=== PATIENT | female | born 1970 | race Caucasian/White ===

== ENCOUNTER 2017-01-31 16:39 | Inpatient (IN) | payer OTHER ==
[~2017-01-31] VITALS: Ht 162.6 cm; Wt 64.0 kg
--- NOTE | 2017-01-31 16:40 | NUR ---
PT IS IN ROOM #2B. DR AMARAL EVALUATED THE PT.
[2017-01-31] MEDS ORDERED: ALBU0.63 IH (16:54)
[2017-01-31] MEDS ORDERED: IV NS 1000 ML 1,000 ML IV ONE ×2 (17:15→18:30)
[2017-01-31] MEDS ORDERED: PANTOPRAZOLE SODIUM IV 40 MG in IV DEXTROSE 5% 100 ML IV ONE (17:20)
[2017-01-31] MEDS ORDERED: ONDANSETRON IV *ER 4 MG/2 ML VIAL IV ONE (17:30)
[2017-01-31] MEDS ORDERED: LORAZEPAM 2 MG/1 ML VIAL IV ONE (17:30)
[2017-01-31] MEDS ORDERED: MORPHINE SULFATE 2 MG/1 ML DISP.SYRIN IV ONE (17:30)
[2017-01-31 17:37] LABS: BASOPHILS % (AUTO) 0.6 % (0.0-2.0); EOSINOPHILS # (AUTO) 0.1 K/uL (0.0-0.7); EOSINOPHILS % (AUTO) 0.7 % (0.0-7.0); HEMATOCRIT 43.2 % (37-47); HEMOGLOBIN 14.1 G/DL (12.0-16.0); LYMPHOCYTES # (AUTO) 1.2 K/UL (0.8-4.8); LYMPHOCYTES % (AUTO) 16.7 % (20.5-51.5); MEAN CORPUSCULAR HEMOGLOBIN 31.2 UUG (27.0-31.0); MEAN CORPUSCULAR HGB CONC 33 g/dL (32.0-37.0); MEAN CORPUSCULAR VOLUME 95.6 FL (81.0-99.0); MONOCYTES # (AUTO) 0.3 K/UL (0.1-1.30); MONOCYTES % (AUTO) 4.7 % (0.0-11.0); NEUTROPHILS # (AUTO) 5.8 K/UL (1.8-8.9); NEUTROPHILS % (AUTO) 77.3 % (38.5-71.5); PLATELET COUNT (AUTO) 328 K/UL (150-450); RED BLOOD CELL COUNT(AUTO) 4.52 MIL/UL (4.2-5.4); WHITE BLOOD COUNT (AUTO) 7.4 K/UL (4.0-11.2)
[2017-01-31] MEDS ORDERED: ONDANSETRON 4 MG/2 ML VIAL ONE (17:43)
[2017-01-31] MEDS ORDERED: PANTOPRAZOLE SODIUM 40 MG VIAL ONE (17:43)
[2017-01-31] MEDS ORDERED: MORPHINE SULFATE 4 MG/1 ML DISP.SYRIN ONE (17:44)
[2017-01-31] MEDS ORDERED: LORAZEPAM 2 MG/1 ML VIAL ONE (17:45)
[2017-01-31] MEDS ORDERED: METOCLOPRAMIDE HCL 10 MG/2 ML VIAL IV ONE (17:51)
[2017-01-31 18:00] LABS: ETHANOL 253 MG/DL (0-0)
[2017-01-31 18:02] LABS: CARBON DIOXIDE 23 mmol/L (21-32); CHLORIDE 106 mmol/L (98-107); CREATININE 0.7 mg/dL (0.6-1.3); GLUCOSE 98 mg/dL (74-106); POTASSIUM 3.6 mmol/L (3.5-5.1); UREA NITROGEN, BLOOD 10 mg/dL (7-18)
[2017-01-31 18:04] LABS: AMYLASE 47 U/L (25-115); CREATINE KINASE, TOTAL 144 U/L (26-192); LIPASE 346 U/L (73-393)
[2017-01-31 18:08] LABS: ALANINE AMINOTRANSFERASE 18 U/L (14-59); ALKALINE PHOSPHATASE 132 U/L (50-136); ASPARTATE AMINOTRANSFERASE 20 U/L (15-37); BILIRUBIN,DIRECT 0.1 mg/dL (0.0-0.2); BILIRUBIN,TOTAL 0.4 mg/dL (0.2-1.0); TOTAL PROTEIN, SERUM 8.2 g/dL (6.4-8.2)
[2017-01-31 18:09] LABS: ACETAMINOPHEN < 2.0 ug/mL (10-30)
[2017-01-31] MEDS ORDERED: METOCLOPRAMIDE HCL 10 MG/2 ML VIAL ONE (18:13)
[2017-01-31 18:19] LABS: *AMPHETAMINE, URINE NEGATIVE (NEGATIVE); *BARBITURATE, URINE NEGATIVE (NEGATIVE); *CANNABINOID, URINE NEGATIVE (NEGATIVE); *COCCAINE, URINE NEGATIVE (NEGATIVE); *OPIATE, URINE POSITIVE (NEGATIVE); *PHENCYCLIDINE SCREEN,URINE NEGATIVE (NEGATIVE)
[2017-01-31 18:21] LABS: *BILIRUBIN,URIN NEGATIVE (NEGATIVE); *BLOOD, URINE Trace-lysed (NEGATIVE); *CLARITY,URINE CLEAR (CLEAR); *COLOR,URINE YELLOW (YELLOW); *KETONES,URINE NEGATIVE (NEGATIVE); *PROTEIN,URINE NEGATIVE (NEGATIVE); *UROBILINOGEN,URINE 0.2 E.U./dl (NORMAL); LEUKOCYTE ESTERASE ,URINE NEGATIVE (NEGATIVE); NITRITE, URINE NEGATIVE (NEGATIVE); UGLUCOSE NEGATIVE (NEGATIVE)
[2017-01-31 18:23] LABS: BACTERIA,URINE NONE SEEN /HPF (NONE SEEN); RBC,URINE 0-3 /HPF (0-3); SQUAMOUS EPITHELIAL CELL,UR FEW /HPF (NONE SEEN); WBC,URINE 0-3 /HPF (0-3)
[2017-01-31] MEDS ORDERED: HYDROMORPHONE 1 MG/1 ML DISP.SYRIN IV ONE ×3 (18:30→22:25)
[2017-01-31] MEDS ORDERED: HYDROMORPHONE 1 MG/1 ML DISP.SYRIN ONE ×2 (18:36→23:06)
[2017-01-31] MEDS ORDERED: KETAMINE HCL 500 MG/10 ML INJ IV ONE ×2 (19:00→21:45)
--- NOTE | 2017-01-31 19:10 | NUR ---
PT WAS MEDICATED ACCORDING TO ER MD ORDERS. PT TOLERATED TO PROCEDURES AND MEDICATION WITHOUT COMPLICATIONS. FAMILY AT THE BEDSIDE. REPORT GIVEN TO BUSINESS ANALYTICS INTERN BARRIE TAIPA.
[2017-01-31] MEDS ORDERED: KETAMINE HCL 500 MG/10 ML INJ ONE ×2 (19:19→22:24)
--- NOTE | 2017-01-31 19:30 | NUR ---
2nd call placed to [facility], Dr. Still speaking with MARY.
--- NOTE | 2017-01-31 20:16 | NUR ---
Patient attempting to elope, ERMD notified. Per ERMD, patient is not to leave as she is not able to make medical decisions at this time. 1:1 sitter ordered by ERMFortunato, Nursing Studio Designer notified, no 1:1 sitter available at this time.
--- NOTE | 2017-01-31 20:20 | NUR ---
Security at bedside, no 1:1 sitter available.
--- NOTE | 2017-01-31 20:24 | NUR ---
Security will not remain with patient due to patient not officially being placed on hold. ERMD notified, Interface Engineer notified.
[2017-01-31] MEDS ORDERED: HYDROMORPHONE 2 MG/1 ML DISP.SYRIN ONE (20:58)
--- NOTE | 2017-01-31 22:27 | NUR ---
Pt. admitted to CCU , under care of Dr. LYNN Belongs List completed.
[2017-01-31 22:45] VITALS: BP 135/91
[2017-01-31 23:00] VITALS: BP 120/93
[2017-01-31] MEDS ORDERED: POTASSIUM CHLORIDE 20 MEQ in IV 1/2NS 1000 ML 1,000 ML IV PRN (23:30)
[2017-01-31] MEDS ORDERED: ONDANSETRON 4 MG/2 ML VIAL IV PRN (23:30)
[2017-01-31] MEDS ORDERED: MAG HYDROX/AL HYDROX/SIMETH 30 ML LIQUID UDC PO PRN (23:30)
[2017-01-31] MEDS ORDERED: ALBUTEROL SULFATE 2.5 MG/3 ML NEBU NEB PRN (23:30)
[2017-01-31] MEDS ORDERED: ACETAMINOPHEN 325 MG TABLET PO PRN (23:30)
[2017-01-31] MEDS ORDERED: HYDROMORPHONE 1 MG/1 ML DISP.SYRIN IV PRN (23:30)
[2017-01-31] MEDS ORDERED: MAGNESIUM HYDROXIDE 30 ML LIQUID UDC PO PRN (23:30)
[2017-01-31] MEDS: LORAZEPAM 2 MG/1 ML VIAL IV PRN (23:55)
[2017-02-01] VITALS (7 sets, daily range): BP systolic 119–144; BP diastolic 60–104
[2017-02-01] MEDS ORDERED: LORAZEPAM 2 MG/1 ML VIAL ONE ×2 (00:10→04:10)
--- NOTE | 2017-02-01 00:57 | NUR ---
Patient complaining of severe abdominal pain. Dr. Mckeon notified. SBAR report given, orders received for increased Dilaudid, first dose to be given 3hr from last administration.
--- NOTE | 2017-02-01 01:30 | NUR ---
Dilaudid pulled from [employer]. Administered as ordered. See eMAR
[2017-02-01] MEDS ORDERED: HYDROMORPHONE 2 MG/1 ML DISP.SYRIN ONE ×2 (01:31→04:53)
[2017-02-01] MEDS: HYDROMORPHONE 1 MG/1 ML DISP.SYRIN IV PRN ×2 (01:31→04:40)
[2017-02-01] MEDS: LORAZEPAM 2 MG/1 ML VIAL IV PRN ×3 (03:56→12:52)
--- NOTE | 2017-02-01 04:02 | NUR ---
Ativan pulled from [employer] and administered as ordered. See eMAR Addendum: 02/01/17 at 0404 by SUNIL GÓMEZ RN Patient continues to be very anxious and restless. PRN given as ordered
--- NOTE | 2017-02-01 05:00 | NUR ---
2mg Dilaudid pulled from pyxis. Wasted 0.5mg to administer 1.5mg as ordered. See eMAR
[2017-02-01 05:17] LABS: BASOPHILS # (AUTO) 0.1 K/uL (0.0-8.0); BASOPHILS % (AUTO) 0.6 % (0.0-2.0); EOSINOPHILS # (AUTO) 0.2 K/uL (0.0-0.7); EOSINOPHILS % (AUTO) 1.3 % (0.0-7.0); HEMOGLOBIN 12.6 G/DL (12.0-16.0); LYMPHOCYTES # (AUTO) 1.8 K/UL (0.8-4.8); LYMPHOCYTES % (AUTO) 15.3 % (20.5-51.5); MEAN CORPUSCULAR HEMOGLOBIN 32.5 UUG (27.0-31.0); MEAN CORPUSCULAR HGB CONC 34 g/dL (32.0-37.0); MEAN CORPUSCULAR VOLUME 95.3 FL (81.0-99.0); MONOCYTES # (AUTO) 0.6 K/UL (0.1-1.30); MONOCYTES % (AUTO) 5.4 % (0.0-11.0); NEUTROPHILS # (AUTO) 9.3 K/UL (1.8-8.9); NEUTROPHILS % (AUTO) 77.4 % (38.5-71.5); PLATELET COUNT (AUTO) 317 K/UL (150-450); RED BLOOD CELL COUNT(AUTO) 3.88 MIL/UL (4.2-5.4)
[2017-02-01 05:45] LABS: BILIRUBIN,TOTAL 0.8 mg/dL (0.2-1.0); CREATININE 0.8 mg/dL (0.6-1.3); MAGNESIUM 1.4 mg/dL (1.8-2.4); PHOSPHOROUS 3.8 mg/dL (2.5-4.9); POTASSIUM 3.5 mmol/L (3.5-5.1); TOTAL PROTEIN, SERUM 7.3 g/dL (6.4-8.2)
[2017-02-01 05:49] LABS: THYROID STIMULATING HORMONE 0.314 mIU/mL (0.358-3.740)
[2017-02-01] MEDS ORDERED: PANTOPRAZOLE SODIUM 40 MG TABLET.DR PO ONE (06:34)
[2017-02-01] MEDS ORDERED: PANTOPRAZOLE SODIUM 40 MG TABLET.DR PO SCH (07:00)
--- NOTE | 2017-02-01 07:27 | NUR ---
PULLED FROM [employer], administered as ordered. See eMAR Dilaudid 2306 Ativan 0010 Protonix 0630
--- NOTE | 2017-02-01 07:31 | NUR ---
Patient remained anxious throughout shift, managed with PRN medication and calming efforts. Afebrile through shift. Hemodynamically stable, NSR with occassional PACs. Room air, SpO2 and RR WNL. Complaining of abdominal pain, managed with PRN medication as ordered and heat pack therapy. Beginning to c/o of diarrhea, starting since 629. Patient refused DVT pumps at this time, frequent OOB. Otherwise, stable. Handoff report given to Torrey Hadley.
[2017-02-01] MEDS: HYDROMORPHONE 2 MG/1 ML DISP.SYRIN IV PRN ×3 (07:49→13:20)
--- NOTE | 2017-02-01 08:00 | NUR ---
Pt received this am awake and alert complaining of 10/10 abdominal pain. Pt noted to be experiencing heroin withdrawal symptoms with x3 loose, diarrhea, ketchup color this am. compliance monitor and alarms working properly wnl. Safety measures maintained. IVF infusing as ordered. VSS wnl.
--- NOTE | 2017-02-01 08:46 | NUR ---
Spoke with Dr. Edward on the telephone. Full report given. stated that it was okay to downgrade pt to telemetry status.
[2017-02-01] MEDS ORDERED: THIAMINE HCL 100 MG TABLET PO SCH (09:00)
[2017-02-01] MEDS ORDERED: FOLIC ACID 1 MG TABLET PO SCH (09:00)
[2017-02-01] MEDS ORDERED: MULTIVITAMINS,THERAPEUTIC TABLET PO SCH (09:00)
[2017-02-01 10:36] LABS: *OCCULT BLOOD STOOL POSITIVE (NEGATIVE)
--- NOTE | 2017-02-01 12:45 | NUR ---
Dr. Edward here to see pt. Full report given. New orders received and carried out.
[2017-02-01] MEDS ORDERED: NICOTINE 21 MG/24HR PATCH TD SCH (13:00)
[2017-02-01] MEDS ORDERED: HYDROCORTISONE 2.5 % RECTAL CREAM 28.35 GM TUBE RC PRN (13:00)
[2017-02-01] MEDS ORDERED: HYDR2DIS IV (13:40)
[2017-02-01] MEDS ORDERED: ALBU2.5V7 NEB (13:40)
[2017-02-01] MEDS ORDERED: MULT-24 PO (13:40)
[2017-02-01] MEDS ORDERED: LORA2VIA6 IV (13:40)
[2017-02-01] MEDS ORDERED: ACET325T53 PO (13:40)
[2017-02-01] MEDS ORDERED: NICO1PAT28 TD (13:40)
[2017-02-01] MEDS ORDERED: FOLI1TAB16 PO (13:40)
[2017-02-01] MEDS ORDERED: PANT40TA2 PO (13:40)
[2017-02-01] MEDS ORDERED: HYDR28.316 RC (13:40)
[2017-02-01] MEDS ORDERED: MAG30ORA PO (13:40)
[2017-02-01] MEDS ORDERED: ONDA4VIA30 IV (13:40)
[2017-02-01] MEDS ORDERED: THIA100T13 PO (13:40)
--- NOTE | 2017-02-01 13:44 | NUR ---
Clinicals faxed to [facility]. department store salesperson Lakeisha.
--- NOTE | 2017-02-01 14:10 | NUR ---
Pt discharged to [facility] with ambulance. Full SBAR telephone report given to BARRIE Harding at the facility and to ambulance at the bedside. Discharge instructions provided and discussed with the pt and family. Meds reconciled by MD and reviewed with the pt and family. Pt and family verbalized understanding of discharge instructions and medications. Belongings sheet reviewed and signed. Pt left with SL forearm #20. Pt stable and nad noted upon leaving the unit.
== END 2017-02-01 14:10 | disposition short-term general hospital (02) | DRG 773 ==
LOC: ER 16:40 → CCU 21:59
PROVIDERS: ADMIT Internal Medicine; ATTEND Internal Medicine
DX: F10.230 Alcohol dependence with withdrawal, uncomplicated (principal); F11.23 Opioid dependence with withdrawal; K56.7 Ileus, unspecified; E86.9 Volume depletion, unspecified; Y90.8 Blood alcohol level of 240 mg/100 ml or more; J45.909 Unspecified asthma, uncomplicated; F17.210 Nicotine dependence, cigarettes, uncomplicated
CPT/HCPCS: 36415; 70030-TC; 70450; 80307; 83690; 83735; 84100; 84443; 85025; A4663; C9113; G0480; G0480-TC; J1170; J2060; J2270; J2405; J2765; J3480; J3490; J7030